=== PATIENT | female | born 1955 | race Caucasian/White ===

== ENCOUNTER 2020-08-30 13:28 | Inpatient (IN) | payer MEDICARE ==
[2020-08-30] MEDS ORDERED: Morphine 2 MG/ML VIAL SLOW IVP PRN ×3 (17:18→21:19)
[2020-08-30 17:20] VITALS: BMI 27.4
[2020-08-30] MEDS ORDERED: Lactated Ringer's 1,000 ML IV SCH (17:30)
[2020-08-30] MEDS ORDERED: Azithromycin 250 MG TAB PO SCH (18:15)
[2020-08-30 18:43] LABS: Hemoglobin 10.9 g/dL (12.0-16.0); Mean Corpuscular HGB CONC 30.4 g/dL (32.0-36.0); Mean Corpuscular Hemoglobin 27.1 pg (27.0-31.0); Mean Corpuscular Volume 89.3 fL (78.0-98.0); Mean Platelet Volume 7.3 fL (7.4-10.4); Platelet Count 438 thou/uL (130-400); RBC Distribution Width 13.1 % (11.5-14.5); Red Blood Cell (RBC) Count 4.02 mill/uL (4.20-5.40); White Blood Cell (WBC) Count 28.9 thou/uL (4.8-10.8)
[2020-08-30 18:46] LABS: Hemoglobin A1c 5.7 % (4.0-6.0)
[2020-08-30 19:05] LABS: Band 42 % (5-11); Hypochromia SLIGHT = 6-15 cells (100X) (0-5/hpf); MDiff Complete? YES; Monocytes 7 % (0-10); Neutrophil 51 % (42-75); Platelet Morphology Comment Appears Increased; Reflex for Review?? NO
[2020-08-30 19:07] LABS: ALT (SGPT) 23 U/L (8-55); AST (SGOT) 62 U/L (5-34); Albumin 2.6 g/dL (3.4-4.8); Alkaline Phosphatase 125 U/L (40-110); Anion Gap 15 mmol/L (10-20); BUN (Urea Nitrogen) 10 mg/dL (9.8-20.1); Bilirubin, Total 0.4 mg/dL (0.2-1.2); Calc. Creatinine Clearance 106 mL/min (70-130); Calcium 8.3 mg/dL (7.8-10.44); Carbon Dioxide 23 mmol/L (23-31); Chloride 97 mmol/L (98-107); Globulin 4.7 g/dL (2.4-3.5); Glucose 164 mg/dL (80-115); Potassium 3.2 mmol/L (3.5-5.1); Protein, Total 7.3 g/dL (5.8-8.1); Sodium 132 mmol/L (136-145)
[2020-08-30] MEDS: Lactated Ringer's 1,000 ML IV SCH (19:19)
[2020-08-30] MEDS ORDERED: Morphine 4 MG/ML VIAL SLOW IVP PRN (19:41)
[2020-08-30] MEDS ORDERED: Morphine 4 MG/ML VIAL SLOW IVP SCH (19:45)
[2020-08-30] MEDS: cefTRIAXone\\ROCEPHIN 1 GM in Sodium Chloride 0.9% 100 ML IVPB SCH (19:47)
[2020-08-30] MEDS: Acetaminophen 325 MG TAB PO PRN (19:49)
[2020-08-30] MEDS: Morphine 2 MG/ML VIAL SLOW IVP PRN (21:55)
[2020-08-30 23:54] LABS: Mucous/LPF Rare LPF (<2+); RBC/HPF Greater than 50 HPF (0-3); Squamous Epithelial 0-3 HPF (0-3); WBC/HPF Greater than 50 HPF (0-3)
[2020-08-30 23:59] LABS: Bacteria/HPF 1+ HPF (None Seen)
[2020-08-31 00:22] LABS: SARS-CoV-2 PCR by NAA Not Detected (NotDetected)
[2020-08-31] MEDS ORDERED: Potassium Chloride 20 MEQ TAB PO SCH (00:45)
[2020-08-31] MEDS: Lactated Ringer's 1,000 ML IV SCH ×3 (01:14→20:03)
[2020-08-31] MEDS: Morphine 4 MG/ML VIAL SLOW IVP SCH ×6 (01:45→20:01)
[2020-08-31] MEDS: Acetaminophen 325 MG TAB PO PRN ×3 (02:43→18:29)
[2020-08-31 07:40] LABS: Hemoglobin 11.6 g/dL (12.0-16.0); Mean Corpuscular HGB CONC 30.6 g/dL (32.0-36.0); Mean Corpuscular Hemoglobin 27.4 pg (27.0-31.0); Mean Corpuscular Volume 89.4 fL (78.0-98.0); Mean Platelet Volume 7.5 fL (7.4-10.4); Platelet Count 338 thou/uL (130-400); RBC Distribution Width 13.3 % (11.5-14.5); Red Blood Cell (RBC) Count 4.24 mill/uL (4.20-5.40); White Blood Cell (WBC) Count 25.5 thou/uL (4.8-10.8)
[2020-08-31] MEDS ORDERED: Lactated Ringer's 1,000 ML IV SCH (07:45)
[2020-08-31 07:46] LABS: ALT (SGPT) 22 U/L (8-55); AST (SGOT) 37 U/L (5-34); Albumin 2.2 g/dL (3.4-4.8); Alkaline Phosphatase 119 U/L (40-110); Anion Gap 17 mmol/L (10-20); BUN (Urea Nitrogen) 11 mg/dL (9.8-20.1); Bilirubin, Total 0.4 mg/dL (0.2-1.2); CK (CPK) 162 U/L (29-168); Calc. Creatinine Clearance 123 mL/min (70-130); Carbon Dioxide 22 mmol/L (23-31); Chloride 96 mmol/L (98-107); Globulin 4.3 g/dL (2.4-3.5); Glucose 100 mg/dL (80-115); Magnesium 1.8 mg/dL (1.6-2.6); Potassium 3.8 mmol/L (3.5-5.1); Protein, Total 6.5 g/dL (5.8-8.1); Sodium 131 mmol/L (136-145)
[2020-08-31 08:06] LABS: Band 21 % (5-11); Burr Cells SLIGHT = 2-5 cells (100X) (0-1/hpf); Lymphocytes 7 % (21-51); MDiff Complete? YES; Monocytes 7 % (0-10); Neutrophil 65 % (42-75); Platelet Morphology Comment Appears Adequate; Polychromasia SLIGHT = 2-3 cells (100X) (0-2/hpf)
[2020-08-31] MEDS ORDERED: Azithromycin 250 MG TAB PO SCH (09:00)
[2020-08-31] MEDS ORDERED: FLU VACC QS2020-21(65YR UP)/PF 240 MCG/0.7 ML SYRINGE IM ONE (09:00)
[2020-08-31] MEDS: Morphine 2 MG/ML VIAL SLOW IVP PRN (10:50)
[2020-08-31] MEDS ORDERED: VANCOMYCIN 1.25 GM/250 ML BAG 1.25 GM in Premix Bag 1 BAG IVPB SCH (12:00)
[2020-08-31] MEDS ORDERED: Magnevist 469MG/ML 20 ML VIAL ONE ×3 (13:32)
[2020-08-31 16:33] LABS: Legionella Urinary Ag Negative (Negative); Strep pneumo Urine Ag NEGATIVE (NEGATIVE)
[2020-08-31] MEDS: cefTRIAXone\\ROCEPHIN 1 GM in Sodium Chloride 0.9% 100 ML IVPB SCH (18:31)
[2020-08-31 20:01] VITALS: BP 95/62; TEMP 98
[2020-08-31] MEDS ORDERED: Vancomycin HCl 1.25 GM in Sodium Chloride 0.9% 250 ML 250 ML IVPB SCH (23:59)
== END 2020-08-31 20:33 | disposition short-term general hospital (02) | DRG 871 ==
LOC: SURG A 15:43 → SURG B 16:24
PROVIDERS: ADMIT Family Medicine; ATTEND Family Medicine
DX: A41.02 Sepsis due to Methicillin resistant Staphylococcus aureus (principal); G06.1 Intraspinal abscess and granuloma; A48.0 Gas gangrene; J18.9 Pneumonia, unspecified organism; G82.50 Quadriplegia, unspecified; M60.08 Infective myositis, other site; E87.1 Hypo-osmolality and hyponatremia; N39.0 Urinary tract infection, site not specified; Z20.822 Contact with and (suspected) exposure to COVID-19; M46.42 Discitis, unspecified, cervical region; E86.0 Dehydration; E87.6 Hypokalemia; E83.42 Hypomagnesemia; M40.202 Unspecified kyphosis, cervical region; M48.02 Spinal stenosis, cervical region
CPT/HCPCS: 36415; 71045; 72156; 72157; 72158; 80053; 81015; 82550; 83036; 83735; 84145; 84484; 85025; 86140; 87040; 87077; 87086; 87149; 87186; 87449; 87635; 87899; A9579; J0696; J2270; J3370; J3490; U0003; U0005